=== PATIENT | female | born 1965 | race Caucasian/White ===

== ENCOUNTER 2016-09-07 19:21 | Emergency (ER) | payer OTHER ==
[~2016-09-07] VITALS: Ht 157.5 cm; Wt 78.1 kg
[2016-09-07 20:03] LABS: HEMATOCRIT 40.9 % (36.0-46.0); MCH 30.4 PG (29.0-34.0); MCHC 34.7 G/DL (30.0-36.0); MCV 87.6 FL (83-99); MEAN PLAT.VOLUME 10.5 uM^3 (9.5-12.4); PLATELET COUNT 326 K/uL (156-360); RBC DIS.WIDTH-CV 12.7 % (11.8-14.6); RBC DIS.WIDTH-SD 39.7 % (39-53); RED BLOOD COUNT 4.67 M/uL (3.80-5.20); WHITE BLOOD COUNT 10.9 K/uL (4.1-10.2)
[2016-09-07 20:07] LABS: ADD MIUA? YES; BILIRUBIN NEGATIVE; BLOOD NEGATIVE; COLOR YELLOW ((YELLOW)); GLUCOSE (STRIP) NEGATIVE; KETONES NEGATIVE; LEUKOCYTES NEGATIVE; NITRITE NEGATIVE; PROTEIN (STRIP) NEGATIVE; SPECIFIC GRAVITY 1.028 (1.000-1.030); UROBILINOGEN 0.2 MG/DL (0.2-1.0)
[2016-09-07 20:13] LABS: CHLORIDE 101 mEq/L (99-109); POTASSIUM 3.5 mEq/L (3.7-5.4); SODIUM 138 mEq/L (136-147)
[2016-09-07 20:15] LABS: GLUCOSE 145 mg/dL (70-99)
[2016-09-07 20:16] LABS: ANION GAP 12 MEQ/L (2-14)
[2016-09-07 20:17] LABS: TOTAL BILIRUBIN 0.3 mg/dL (0.0-1.0)
[2016-09-07 20:19] LABS: ALKALINE PHOSPHATASE 85 IU/L (3-129); GFR ESTIMATE (CALCULATED) > 59 mL/min/
[2016-09-07 20:20] LABS: UREA NITROGEN (BUN) 16 mg/dL (9-23)
[2016-09-07 20:28] LABS: QUANTITATIVE HCG < 4.0 MIU/ML
[2016-09-07 20:32] LABS: BACTERIA 1+; CASTS NONE SEEN /LPF; CRYSTALS NONE SEEN; EPITHELIAL CELLS 2+; MUCUS NONE SEEN; PATHOLOGICAL CAST NONE SEEN; RED BLOOD CELLS 0-5 /HPF (0-5); SMALL ROUND CELL NONE SEEN; UCUL ADDED? NO; WHITE BLOOD CELLS 0-5 /HPF (0-5); YEAST-LIKE CELL NONE SEEN
[2016-09-07 21:55] LABS: LIPASE 24 U/L (1.0-51.0)
[2016-09-07] MEDS ORDERED: LIPITOR20 MG PO (22:09)
[2016-09-07] MEDS ORDERED: GLUCOPHAGE1000 MG PO (22:09)
[2016-09-07] MEDS ORDERED: FISH OIL 1,0001 EAC7 PO (22:09)
[2016-09-07] MEDS ORDERED: KLONOPIN1 MG PO (22:09)
[2016-09-07] MEDS ORDERED: EFFEXOR75 MG PO (22:10)
[2016-09-07] MEDS ORDERED: HYZAAR 100-21 TABLET PO (22:11)
[2016-09-07] MEDS ORDERED: OMEPRAZOLE40 M1 PO (22:11)
[2016-09-08] MEDS ORDERED: NORCO 5/3251 TABLET PO (00:18)
[2016-09-08 00:32] VITALS: BP 135/91
== END 2016-09-08 00:33 | disposition home or self-care (01) ==
LOC: EME 19:21 → EXP 19:21
DX: K80.70 Calculus of gallbladder and bile duct without cholecystitis without obstruction (principal); E11.65 Type 2 diabetes mellitus with hyperglycemia; E78.5 Hyperlipidemia, unspecified; I10 Essential (primary) hypertension
CPT/HCPCS: 76705; 80053; 81003; 83690; 84702; 85027; 99281; 99284

== ENCOUNTER → 2016-09-21 | Outpatient (CLI) | payer OTHER ==
[~2016-09-21] MED LIST: COLACE100 MG PO; EFFEXOR75 MG PO; FISH OIL 1,0001 EAC7 PO; GLUCOPHAGE1000 MG PO; HYZAAR 100-21 TABLET PO; KLONOPIN1 MG PO; LIPITOR20 MG PO; NORCO 5/3251 TABLET PO; OMEPRAZOLE40 M1 PO; TRULICITY1.5 MG/0.5 SC
== END | disposition home or self-care (01) ==
LOC: CDC 08:51
DX: Z01.810 Encounter for preprocedural cardiovascular examination (principal); K82.4 Cholesterolosis of gallbladder
CPT/HCPCS: 93000

== ENCOUNTER 2016-09-23 08:00 | Day surgery (SDC) | payer OTHER ==
[~2016-09-23] VITALS: Ht 152.4 cm; Wt 78.4 kg
[~2016-09-23 08:00] MED LIST changes: -COLACE100 MG PO; -TRULICITY1.5 MG/0.5 SC
[2016-09-23] MEDS ORDERED: TRULICITY1.5 MG/0.5 SC (08:17)
[2016-09-23 08:23] VITALS: BP 113/77
[2016-09-23 08:29] LABS: POINT-OF-CARE METER ID UU14174212
[2016-09-23] MEDS ORDERED: NORCO 5/3251 TABLET PO (11:36)
[2016-09-23] MEDS ORDERED: COLACE100 MG PO (11:40)
[2016-09-23 12:25] VITALS: BP 103/65
[2016-09-23 14:52] VITALS: BP 109/67
== END 2016-09-23 13:40 | disposition home or self-care (01) ==
LOC: SDC 08:00
PROVIDERS: Surgery
PROC: 0FT44ZZ Resection of Gallbladder, Percutaneous Endoscopic Approach (ICD-10-PCS; principal; 2016-09-23)
DX: K80.10 Calculus of gallbladder with chronic cholecystitis without obstruction (principal); E11.9 Type 2 diabetes mellitus without complications; I10 Essential (primary) hypertension; F17.200 Nicotine dependence, unspecified, uncomplicated
CPT/HCPCS: 82948; 88304; J1100; J1170; J1885; J2250; J2405; J2710; J3010

== ENCOUNTER 2017-05-04 14:37 | Emergency (ER) | payer OTHER ==
[~2017-05-04] VITALS: Ht 165.1 cm; Wt 75.9 kg
[~2017-05-04 14:37] MED LIST changes: +COLACE100 MG PO; +TRULICITY1.5 MG/0.5 SC
[2017-05-04 15:33] VITALS: BP 136/96
== END 2017-05-04 15:42 | disposition home or self-care (01) ==
LOC: EME 14:37
DX: S00.93XA Contusion of unspecified part of head, initial encounter (principal); W01.198A Fall on same level from slipping, tripping and stumbling with subsequent striking against other object, initial encounter; Y92.213 High school as the place of occurrence of the external cause; Y99.0 Civilian activity done for income or pay; E78.5 Hyperlipidemia, unspecified; I10 Essential (primary) hypertension; E11.9 Type 2 diabetes mellitus without complications; F17.200 Nicotine dependence, unspecified, uncomplicated; Z79.84 Long term (current) use of oral hypoglycemic drugs
CPT/HCPCS: 99281; 99284

== ENCOUNTER 2017-06-27 17:14 | Emergency (ER) | payer OTHER ==
[~2017-06-27] VITALS: Ht 157.5 cm; Wt 73.7 kg
[2017-06-27 17:44] LABS: ADD MIUA? YES; BILIRUBIN NEGATIVE; BLOOD NEGATIVE; COLOR YELLOW ((YELLOW)); GLUCOSE (STRIP) >=500; KETONES NEGATIVE; LEUKOCYTES NEGATIVE; NITRITE NEGATIVE; PROTEIN (STRIP) NEGATIVE; SPECIFIC GRAVITY 1.029 (1.000-1.030); UROBILINOGEN 0.2 MG/DL (0.2-1.0)
[2017-06-27 18:03] LABS: MCH 30.4 PG (29.0-34.0); MCHC 33.6 G/DL (30.0-36.0); MCV 90.4 FL (83-99); MEAN PLAT.VOLUME 10.2 uM^3 (9.5-12.4); PLATELET COUNT 329 K/uL (156-360); RBC DIS.WIDTH-CV 13.1 % (11.8-14.6); WHITE BLOOD COUNT 10.2 K/uL (4.1-10.2)
[2017-06-27 18:09] LABS: BACTERIA RARE /HPF; EPITHELIAL CELLS 1+ /HPF; MUCUS NONE SEEN /LPF; RED BLOOD CELLS RARE /HPF (0-5); UCUL ADDED? NO; WHITE BLOOD CELLS NONE SEEN /HPF (0-5)
[2017-06-27 18:18] LABS: CHLORIDE 99 mEq/L (99-109); POTASSIUM 3.5 mEq/L (3.7-5.4); SODIUM 137 mEq/L (136-147)
[2017-06-27 18:20] LABS: GLUCOSE 195 mg/dL (70-99)
[2017-06-27 18:21] LABS: ANION GAP 17 MEQ/L (2-14)
[2017-06-27 18:22] LABS: TOTAL BILIRUBIN 0.2 mg/dL (0.0-1.0)
[2017-06-27 18:23] LABS: ALKALINE PHOSPHATASE 103 IU/L (3-129)
[2017-06-27 18:24] LABS: GFR ESTIMATE (CALCULATED) > 59 mL/min/
[2017-06-27 18:25] LABS: UREA NITROGEN (BUN) 9 mg/dL (9-23)
[2017-06-27 18:36] LABS: QUANTITATIVE HCG < 4.0 MIU/ML
[2017-06-27] MEDS ORDERED: GOLYTELY SOLU4000 ML PO (19:57)
[2017-06-27] MEDS ORDERED: BENTYL20 MG PO (19:58)
[2017-06-27 20:22] VITALS: BP 135/88
== END 2017-06-27 20:23 | disposition home or self-care (01) ==
LOC: EME 17:14
DX: K59.00 Constipation, unspecified (principal); E11.9 Type 2 diabetes mellitus without complications; E78.5 Hyperlipidemia, unspecified; I10 Essential (primary) hypertension; Z79.84 Long term (current) use of oral hypoglycemic drugs; F17.200 Nicotine dependence, unspecified, uncomplicated
CPT/HCPCS: 74020; 80053; 81003; 84702; 85027; 99281; 99283; J3010

== ENCOUNTER 2018-04-16 21:01 | Emergency (ER) | payer OTHER ==
[~2018-04-16] VITALS: Ht 157.5 cm; Wt 81.1 kg
[~2018-04-16 21:01] MED LIST changes: +BENTYL20 MG PO; +GOLYTELY SOLU4000 ML PO
[2018-04-16 21:56] LABS: HEMOGLOBIN 14.9 G/DL (11.9-15.5); MCH 30.2 PG (29.0-34.0); MCHC 34.7 G/DL (30.0-36.0); MCV 87.2 FL (83-99); PLATELET COUNT 352 K/uL (156-360); RBC DIS.WIDTH-CV 12.5 % (11.8-14.6); RBC DIS.WIDTH-SD 39.7 % (39-53); RED BLOOD COUNT 4.93 M/uL (3.80-5.20); WHITE BLOOD COUNT 11.8 K/uL (4.1-10.2)
[2018-04-16 22:04] LABS: APPEARANCE CLEAR ((CLEAR)); BILIRUBIN NEGATIVE; BLOOD NEGATIVE; COLOR STRAW ((YELLOW)); GLUCOSE (STRIP) >=500; KETONES NEGATIVE; LEUKOCYTES NEGATIVE; NITRITE NEGATIVE; PROTEIN (STRIP) NEGATIVE; SPECIFIC GRAVITY 1.031 (1.000-1.030); UCUL ADDED? NO; UROBILINOGEN 0.2 MG/DL (0.2-1.0)
[2018-04-16 22:05] LABS: ALBUMIN 4.3 g/dL (3.2-4.8); CHLORIDE 97 mEq/L (99-109); POTASSIUM 3.5 mEq/L (3.7-5.4); SODIUM 134 mEq/L (136-147)
[2018-04-16 22:07] LABS: GLUCOSE 240 mg/dL (70-99)
[2018-04-16 22:08] LABS: TOTAL PROTEIN 7.7 g/dL (6.4-8.3)
[2018-04-16 22:09] LABS: TOTAL BILIRUBIN 0.2 mg/dL (0.0-1.0)
[2018-04-16 22:11] LABS: ALKALINE PHOSPHATASE 106 IU/L (3-129); CREATININE 1.4 mg/dL (0.6-1.3); GFR ESTIMATE (CALCULATED) 42 mL/min/
[2018-04-16 22:12] LABS: UREA NITROGEN (BUN) 12 mg/dL (9-23)
[2018-04-16 22:13] LABS: AST (GOT) 16 IU/L (2-34)
[2018-04-16 22:14] LABS: ALT (GPT) 26 IU/L (3-49)
[2018-04-16 22:23] LABS: QUANTITATIVE HCG < 4.0 MIU/ML
[2018-04-16 23:49] LABS: LIPASE 60 U/L (1.0-51.0)
[2018-04-17] MEDS ORDERED: ZANTAC300 MG PO (01:46)
[2018-04-17] MEDS ORDERED: ZOFRAN ODT8 MG PO (01:46)
[2018-04-17 02:07] VITALS: BP 106/75
== END 2018-04-17 02:10 | disposition home or self-care (01) ==
LOC: EME 21:01
DX: R10.13 Epigastric pain (principal); R11.0 Nausea; E86.0 Dehydration; N28.9 Disorder of kidney and ureter, unspecified; E11.9 Type 2 diabetes mellitus without complications; E78.5 Hyperlipidemia, unspecified; I10 Essential (primary) hypertension; F17.200 Nicotine dependence, unspecified, uncomplicated; Z90.49 Acquired absence of other specified parts of digestive tract; Z79.84 Long term (current) use of oral hypoglycemic drugs
CPT/HCPCS: 74177; 80053; 81003; 83690; 84702; 85027; 99281; 99285; J2405; J7030